=== PATIENT | female | born 1930 ===

== ENCOUNTER 2019-10-20 09:48 | Emergency (ER) | payer MEDICARE, MEDICAID ==
[2019-10-20] MEDS ORDERED: METHYLPREDNISOLONE PF 125MG/VIAL IM ONE (09:54)
[2019-10-20] MEDS ORDERED: IPRATROPIUM/ALBUTEROL (0.5MG/3MG) NEB INH ONE ×2 (09:54→11:46)
[2019-10-20] MEDS ORDERED: ALBUTEROL (0.5% CONCENTRATED) 2.5 MG/0.5 ML VIAL.NEB INH ONE (09:54)
--- NOTE | 2019-10-20 09:57 | Emergency Department Record ---
History of Present Illness - General Chief Complaint: Difficulty Breathing Stated Complaint: COUGHING Time Seen by Provider: 10/20/19 09:53 Source: Patient Mode of Arrival: Wheelchair Limitations: Other - History of Present Illness Initial Comments: 89 yo female presents with cough for about 5 days. The patient's cough with wheeze became fairly constant last night. She is a member of a retirement. In her medical record it indicates she is an asthmatic/COPD as well. Her breathing become more labored overnight per the rn coronary care unit present. To his knowledge one other member of the home has a cough. 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 [employer]. She is full code. No vomiting or diarrhea. No abdominal pain. No new rashes. The rn coronary care unit is unsure if she had a flu shot. His is not aware of her being hospitalized in the last one year. Her PMHx on her medical paperwork from the [facility] states she has severe MR, osteopenia, allergic rhinitis, benign skin leasion, asthma. 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 She sees Dr Mehta of visiting physicians. The EMR was reviewed. She had one prior [facility] visit in 2018 for URI symptoms. Complaint: "Asthma attack", Cough, Shortness of breath -: Days(s) Severity: Moderate Quality: Other Consistency: Constant Improves With: Nothing Worsens With: Coughing Known History Of: COPD, Other Context: Recent URI Associated Symptoms: Cough Treatments Prior to Arrival: Other - Related Data Home Medications Medication Instructions Recorded Confirmed Last Taken Alendronate Sodium [Fosamax] 70 mg PO 10/20/19 Unknown Allergies Allergy/AdvReac Type Severity Reaction Status Date / Time tuberculin, purified protein Allergy PT UNSURE Verified 10/20/19 10:38 deriva OF REACTION Review of Systems Constitutional: Denies: Chills, Fever, Malaise, Weakness Eyes: Denies: Eye discharge ENT: Denies: Congestion, Throat pain Respiratory: Reports: Cough, Dyspnea, Wheezes. Denies: Hemoptysis Cardiovascular: Denies: Chest pain, Palpitations, Syncope Endocrine: Denies: Fatigue Gastrointestinal: Denies: Abdominal pain, Diarrhea, Nausea, Vomiting Genitourinary: Denies: Dysuria, Urgency Musculoskeletal: Denies: Arthralgia, Back pain, Myalgia Skin: Denies: Bruising, Change in color, Rash Neurological: Denies: Headache, Weakness Psychiatric: Denies: Anxiety Hematological/Lymphatic: Denies: Easy bleeding, Easy bruising Physical Exam - General General Appearance: Alert, Oriented x3, Cooperative Limitations: No limitations - Head Head exam: Atraumatic, Normal inspection - Eye Eye exam: Normal appearance. negative: Conjunctival injection - ENT ENT exam: Normal exam Ear exam: Normal external inspection Nasal Exam: Normal inspection Mouth exam: Normal external inspection - Neck Neck exam: Normal inspection, Full ROM. negative: Lymphadenopathy, Meningismus, Tenderness - Respiratory Respiratory exam: Accessory muscle use, Decreased breath sounds, Prolonged expiratory, Rhonchi, Wheezes. negative: Normal lung sounds bilaterally - Cardiovascular Cardiovascular Exam: Regular rate, Normal rhythm, Normal heart sounds - GI/Abdominal GI/Abdominal exam: Soft. negative: Tenderness - Rectal Rectal exam: Deferred - exam: Deferred - Extremities Extremities exam: negative: Calf tenderness, Pedal edema, Tenderness - Back Back exam: Denies: CVA tenderness (R), CVA tenderness (L) - Neurological Neurological exam: Alert - Psychiatric Psychiatric exam: Anxious - Skin Skin exam: Dry, Intact, Normal color, Warm Course - Reevaluation(s) Reevaluation #1: 10/20/19 10:05 The patient has diffuse wheezing on examination. She is maintaining her saturations in the mid to upper 90's. 10/20/19 10:23 EKG #1: 10:14 Rate: 103 Rhythm: atrial fibrillation [place]: normal Intervals: Qtc [address] ST segments: No specific repole changes Prior: None 10/20/19 10:24 No prior history of atrial fibrillation is in the chart or the patient medical record that accompanied the patient The onset of the afib is unknown. No prior bleeding history in the chart or patient record that is with her. She will be anti-coagulated. 10/20/19 10:35 The CBC was reviewed no acute abnormality The CMP was reviewed no acute abnormality The Influenza are negative The patient was rechecked after the Duoneb + Albuterol. She is improved. She still has diffuse wheezing. 10/20/19 10:56 BNP is 1048 The Troponin is negative 10/20/19 11:29 The CXR was reviewed. Mild pulmonary vascular congestion. Dilatated loop of colon. 10/20/19 11:35 The patient's medical directive states [facility] is the hospital of preference. The patient will likely benefit from an ECHO and cardiology which are not available until Thursday at [facility]. [facility] will be contacted. 10/20/19 12:22 Dr Pena of EP called back. He will see the patient in consultation. Dr Heaton of accepts the patient for transfer to [facility] when bed is available. 10/20/19 12:43 The patient responded well to the second breathing treatment. Abdominal XR ordered per radiologist request. The patient is not having and abdominal pain, nausea or vomiting. No symptoms to suggest obstruction. 10/20/19 14:09 Bed assigned at [facility]. Medical Decision Making - Lab Data Result diagrams: 10/20/19 09:50 10/20/19 09:50 Disposition Disposition: Transfer Clinical Impression: COPD with exacerbation, Atrial fibrillation, Congestive heart failure Disposition: Acute Care Hospital Transfer Transfer To: [facility] Reason For Transfer: New onset afib, chf Accepting Physician: Sudarshan Time Discussed w/Accepting Physician: 12:21 Condition: (2) Stable Forms: Patient Portal Access Time of Disposition: 11:31 Quality - Quality Measures Quality Measures: N/A - Blood Pressure Screening Does Patient Have Any of the Following: No Blood Pressure Classification: Pre-Hypertensive BP Reading Systolic Measurement: 129 Diastolic Measurement: 61 Screening for High Blood Pressure: < Pre-Hypertensive BP, F/U Documented > [G8950] Pre-Hypertensive Follow-up Interventions: Referral to alternative/primary care provider.
[2019-10-20] MEDS ORDERED: METHYLPREDNISOLONE PF 125MG/VIAL IVP ONE (10:04)
[2019-10-20 10:07] LABS: ABSOLUTE NEUTROPHIL COUNT 5.27; HEMOGLOBIN 13.2 gm/dl (11.6-16.0); MEAN CORPUSCULAR HEMOGLOBIN 29.9 pg (27-33); MEAN CORPUSCULAR HGB CONC 32.2 g/dl (32-36); MEAN PLATELET VOLUME 12.8 fl (7.4-10.4); PLATELET COUNT 142 K/uL (130-400); RED BLOOD COUNT 4.41 M/uL (3.80-5.40); WHITE BLOOD COUNT W/O DIFF 7.4 K/uL (4.2-12.2)
[2019-10-20 10:19] LABS: PLATELET ESTIMATE NORMAL (NORMAL)
[2019-10-20 10:21] LABS: BLOOD UREA NITROGEN 12 mg/dL (8-23); CREATININE 0.8 mg/dL (0.5-0.9); EST GLOMERULAR FILTRATION RATE > 60 mL/min
[2019-10-20 10:22] LABS: INFLUENZA A NEGATIVE (NEGATIVE); INFLUENZA B NEGATIVE (NEGATIVE); TOTAL PROTEIN 7.5 g/dL (6.6-8.7)
[2019-10-20 10:24] LABS: GLUCOSE,RANDOM 129 mg/dL (74-109)
[2019-10-20 10:26] LABS: ALT/SGPT 11 U/L (<33)
[2019-10-20] MEDS ORDERED: HEPARIN SODIUM 1000 UNIT/1 ML 10ML VIAL IVP ONE (10:26)
[2019-10-20 10:27] LABS: ALB/GLOB RATIO 1.2 (1.1-1.8); ALBUMIN 4.1 g/dL (4.0-5.0); ALKALINE PHOSPHATASE 97 U/L (35-104); AST/SGOT 23 U/L (10.0-35.0)
[2019-10-20] MEDS ORDERED: HEPARIN SODIUM/D5W 25,000 UNITS/500 ML BAG IV SCH ×2 (10:30→11:00)
[2019-10-20 10:33] LABS: PARTIAL THROMBOPLASTIN TIME 28.6 SECONDS (24.5-39.1); PROTHROMBIN TIME (PATIENT) 10.4 SECONDS (9.5-12.1)
--- NOTE | 2019-10-20 11:27 | RADIOLOGY REPORT ---
EXAMINATION: Single View Chest EXAM DATE: 10/20/2019 10:23 AM TECHNIQUE: Single view chest INDICATION: gonzalo, cough, wheeze COMPARISON: None. ENCOUNTER: Not applicable FINDINGS: Cardiac silhouette size is within normal limits. Mild pulmonary vascular congestion.. Decreased lung volumes with moderately elevated left diaphragm. Slight hazy opacities in the upper lung. No pleural effusion. No pneumothorax is present. Bowel in the upper abdomen is distended IMPRESSION: Mild pulmonary vascular congestion versus airspace disease in the upper lungs. Recommend follow-up ra diographs. Dilated bowel, consider further evaluation with abdominal x-ray. Dictated by: Yvonne Ureña MD on 10/20/2019 11:21 AM. .
[2019-10-20] MEDS ORDERED: FUROSEMIDE IV 20MG/2ML VIAL IVP ONE (11:29)
--- NOTE | 2019-10-20 13:52 | RADIOLOGY REPORT ---
EXAMINATION: Portable Abdomen Single View EXAM DATE: 10/20/2019 1:02 PM TECHNIQUE: Single portable supine AP view at 1254. INDICATION: distended bowel on CXR COMPARISON: Chest radiographs, 10/20/2019. ENCOUNTER: Not applicable FINDINGS: Bowel: The previously noted distended distal transverse colon is not as well appreciated on the curre nt study where the left hemidiaphragm is not completely image. Diffuse air-filled stomach, large and small bowel are noted however, no distended bowel is seen. Abnormal Calcifications: None. Bones: Decreased bone mineralization. Levoscoliosis of the lumbar spine. Diffuse small to moderate ve rtebral body osteophytes. Narrowing of the L4-L5 and L5-S1 disc spaces. Other Findings: None. CT of the abdomen and pelvis could be helpful in further evaluation. IMPRESSION: Transverse colon not completely evaluated on the current images. See above. Dictated by: Dina Verdin MD on 10/20/2019 1:45 PM. .
== END 2019-10-20 16:27 | disposition short-term general hospital (02) ==
LOC: ER 09:48
DX: J44.1 Chronic obstructive pulmonary disease with (acute) exacerbation (principal); J45.901 Unspecified asthma with (acute) exacerbation; I48.91 Unspecified atrial fibrillation; I50.9 Heart failure, unspecified
CPT/HCPCS: 71045; 74018; 80053; 83880; 84484; 85027; 85610; 85730; 87400; 93005; 93010; 94640; 96365; 96366; 96372; 99285; J1940; J2930